=== PATIENT | female | born 1960 | race Caucasian/White ===

== ENCOUNTER → 2016-09-26 | Outpatient (CLI) | payer BC, OTHER ==
[~2016-09-26] MED LIST: AMOX875T PO; ASPI1TAB83 PO; FLNIN NAE; FRCT/ PO; IBUP-1277 PO; METH-446 PO; METO25TA56 PO; NRN300 PO; OMEP40CA PO; PROM25TA16 PO; RIZA10TA19 PO; SUCR1TAB29 PO; ULT50 PO
[2016-10-03 20:34] LABS: V-ZOSTER CULT NOT ISOLATED
== END | disposition home or self-care (01) ==
LOC: C.LABSPEC 13:49
PROVIDERS: ATTEND Dermatology
DX: L30.9 Dermatitis, unspecified (principal)

== ENCOUNTER → 2016-10-16 | Outpatient (CLI) | payer BC | END | disposition home or self-care (01) | LOC: C.PATHSPEC 16:33 | PROVIDERS: ATTEND Dermatology | DX: C44.91 Basal cell carcinoma of skin, unspecified (principal) ==

== ENCOUNTER 2016-10-22 21:34 | Emergency (ER) | payer BC, OTHER ==
[~2016-10-22] VITALS: Ht 158.8 cm; Wt 100.8 kg
[~2016-10-22 21:34] MED LIST changes: -AMOX875T PO
[2016-10-22 21:39] VITALS: TEMP 36.7; Ht 158.8 cm; Wt 100.8 kg
[2016-10-22] MEDS ORDERED: AMOX875T PO (22:14)
[2016-10-22] MEDS ORDERED: AMOXICIL/CLAVU 875MG HOME PACK PO ONE (22:15)
[2016-10-22 22:36] VITALS: BP 153/93; PULSE 90; O2SAT 93
--- NOTE | 2016-10-23 05:10 | EMERGENCY ROOM VISIT NOTE ---
History First contact with patient: 22:02 Chief Complaint: BITE Stated Complaint: INSECT BITE TO RIGHT FOREARM, ROBERT[place], SORE THROAT History of Present Illness The patient is a 56 year old female who presents to the Emergency Room with complaints of pain and swelling to her right forearm worsening over the past one to 2 days. The patient states that she believes that she had an insect bite her in this area, and it has had worsening pain and discomfort. She is also complaining of sinus congestion symptoms for the past 2-3 weeks. The patient has not had fever or chills. No chest pain, chest tightness, or shortness of breath. 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 She rates her discomfort a 6/10 without radiation. Review of Systems More than 10 systems were reviewed and otherwise negative with the exception of history of present illness. Past Medical/Surgical History Medical Problems: (1) Asthma (2) Bronchitis (3) Cholecystectomy (4) Deep venous thrombosis of lower extremity (5) ESOPHAGEAL STRICTURE (6) Gastroesophageal reflux disease (7) Migraine (8) Multiple sclerosis (9) scoliosis Family History No pertinent family history Social History Smoking Status: Never Smoker Alcohol Use: occasionally Marital Status: in relationship Housing Status: lives with significant other Occupation Status: employed Current/Historical Medications Scheduled Amoxicillin & Pot Clavulanate (Augmentin 875-125 mg), 1 TAB PO BID Aspirin (Aspirin), 81 MG PO DAILY Gabapentin (Gabapentin), 300 MG PO TID Metoprolol Tartrate (Lopressor) (Lopressor), 12.5 MG PO HS Omeprazole (Prilosec), 40 MG PO DAILY Sucralfate (Carafate), 1 GM PO TID Scheduled PRN Acetamin/Butalbital/Caffeine (Fioricet), 1 TABLET PO DAILY PRN Fluticasone Propionate (Flonase Nasal [place]), 2 SPRAYS YAJAIRA DAILY PRN Ibuprofen (Advil), 600 MG PO Q8 PRN Methocarbamol (Robaxin), 750 MG PO TID PRN Promethazine HCl (Promethazine HCl), 25 MG PO Q4-6H PRN Rizatriptan Benzoate (Maxalt-Analytical Sciences Director), 10 MG PO UD PRN Tramadol HCl (Tramadol HCl), 50 MG PO DIRECTED PRN for Headache Allergies Coded Allergies: Azithromycin (Verified Allergy, Mild, rash, 10/22/16) Doxycycline (Verified Allergy, Mild, RASH, 10/22/16) Latex1 -Allergic Contact Dermititis (Verified Allergy, Mild, skin irritation, 10/22/16) Sulfamethoxazole w/Trimethoprim (Verified Allergy, Mild, rash, 10/22/16) Glatiramer (Verified Allergy, Unknown, Shortness of breath., 10/22/16) Mannitol (Verified Allergy, Unknown, Shortness of breath., 10/22/16) Physical Exam Vital Signs Date Time Temp Pulse Resp B/P Pulse Ox O2 Delivery O2 Flow Rate FiO2 10/22/16 22:36 90 16 153/93 93 10/22/16 21:39 36.7 95 20 155/94 96 Room Air Pain Rating (0-10): 3.0 Physical Exam VITALS: Vitals are noted on the nurse's note and reviewed by myself. Vital signs stable. GENERAL: Well-developed, well-nourished, white female, who is in no acute distress and resting comfortably. Patient is cooperative with the examination. HEAD: Normocephalic atraumatic. HEART: Regular rate and rhythm without murmurs gallops or rubs. LUNGS: Clear to auscultation bilaterally without wheezes, rales or rhonchi. No retractions or accessory muscle use. SKIN: The skin was with 3 distinct areas along the volar aspect of the right forearm each measuring approximately 1.5 cm in diameter. These do appear consistent with an insect bite or similar finding. There is a surrounding cellulitis measuring an additional 4 to 5 cm around these lesions. This does track proximally, but there is no palpable cord. The patient has full sensation and range of motion of the right upper extremity. Medical Decision & Procedures Medications Administered Medications (Trade) Dose Ordered Sig/Alisha Route Start Time Stop Time Status Last Admin Dose Admin Amoxicillin/ Clavulanate Potassium (Augmentin 875MG Home Pack) 1 homepack UD ONCE PO 10/22/16 22:15 10/22/16 22:16 DC 10/22/16 22:31 1 HOMEPACK ED Course Physical exam and history were performed. Nursing notes and EMR were reviewed. Patient appears to have a cellulitis of her right forearm, likely from insect bites or other similar injury. The patient certainly does not appear septic or with lymphangitis. She has multiple drug allergies, and after discussing options of care with the patient we will try a course of Augmentin. The patient was asked to follow with her primary care physician in the next few days for recheck of her condition. She was otherwise invited back to the ER with any new, worsening, or concerning symptoms. The chart was completed utilizing [employer] Speech Voice Recognition Software. Grammatical errors, random word insertions, pronoun errors, and incomplete sentences are an occasional consequence of this system due to software limitations, ambient noise, and hardware issues. Any formal questions or concerns about the content, text, or information contained within the body of this dictation should be directly addressed to the provider for clarification. . Medical Decision Differential diagnosis: Etiologies such as cellulitis, abscess, MRSA infection, DVT, necrotizing fasciitis, dermatitis, drug eruption, as well as others were entertained.. Impression Primary Impression: Cellulitis Departure Information Dispostion Home / Self-Care Condition GOOD Prescriptions Amoxicillin & Pot Clavulanate (Augmentin 875-125 mg) 1 Tab Tab 1 TAB PO BID for 9 Days, #18 TAB Prov: Pawel Pal PA-C 10/22/16 Forms HOME CARE DOCUMENTATION FORM, IMPORTANT VISIT INFORMATION Patient Instructions My [facility] Additional Instructions You were seen and evaluated today on an emergency basis only. This is not a substitute for, or an effort to provide, complete comprehensive medical care. It is not possible to recognize and treat all injuries or illnesses in a single emergency department visit. For this reason it is recommended that you followup with your primary care physician this week for ongoing care and evaluation. For baseline pain relief you may alternate ibuprofen and acetaminophen every 4 hours for pain control. Take 600 mg ibuprofen (Advil) and then 4 hours later take 1000 mg acetaminophen (Tylenol). Do not take more than 3000 mg acetaminophen in a single day. Amoxicillin Clavulanate (Augmentin) 875mg: Take one pill twice daily for 10 days for your infection. All antibiotics can cause diarrhea. If this occurs and you feel worse or it does not resolve in 1-2 days follow up with your doctor or return to the Emergency Department as this could be signs of serious underlying problems. Any medication can cause an allergic reaction, stop the pills immediately and return to the ER for rash, hives, breathing difficulties, or swelling. You may take 25-50 mg of [id number] Benadryl every 6 hours as needed for itching. You are welcome to return to the emergency department anytime with new, worsening, or concerning symptoms.
== END 2016-10-22 22:30 | disposition home or self-care (01) ==
LOC: C.EDB 21:37 → C.EDC 22:30
DX: L03.90 Cellulitis, unspecified (principal); J45.909 Unspecified asthma, uncomplicated; K21.9 Gastro-esophageal reflux disease without esophagitis; G35 Multiple sclerosis; M41.9 Scoliosis, unspecified; Z79.82 Long term (current) use of aspirin

== ENCOUNTER → 2016-11-22 | Outpatient (CLI) | payer BC | END | disposition home or self-care (01) | LOC: C.PATHSPEC 17:47 | PROVIDERS: ATTEND Plastic Surgery | DX: C44.319 Basal cell carcinoma of skin of other parts of face (principal) ==

== ENCOUNTER → 2016-11-27 | Outpatient (CLI) | payer BC ==
[2016-11-27 12:14] LABS: BASO % 0.5 %; BASO ABS # 0.03 K/uL (0-0.2); COMPLETE YES; EOS % 2.4 %; HEMATOCRIT 38.8 % (37-47); IG% 0.2 %; LYMPH % 21.4 %; LYMPH ABS # 1.18 K/uL (1.2-3.4); MEAN CELL VOLUME 85.1 fL (80-100); MEAN CORPUSCULAR HEMOGLOBIN 28.3 pg (25-34); MEAN CORPUSCULAR HGB CONC 33.2 g/dl (32-36); MEAN PLATELET VOLUME 11.4 fL (7.4-10.4); NEUT % 67.5 %; PLATELET COUNT 219 K/uL (130-400); RED BLOOD COUNT 4.56 M/uL (4.2-5.4); WHITE BLOOD COUNT 5.51 K/uL (4.8-10.8)
[2016-11-27 12:25] LABS: URINE APPEARANCE CLEAR (CLEAR); URINE BILIRUBIN NEG (NEG); URINE COLOR YELLOW; URINE EPITHELIAL CELL AUTO 20-30 /lpf (0-5); URINE NITRITE NEG (NEG); URINE SPECIFIC GRAVITY 1.006 (1.000-1.030); UROBILINOGEN NEG (NEG); ZZUR CULT IF INDIC CLEAN CATCH NO
[2016-11-27 12:39] LABS: MANUAL MICROSCOPIC REQUIRED? NO; REVIEW REQ? NO
[2016-11-27 13:55] LABS: LYME DISEASE AB IGG NEG (NEG)
[2016-11-27 13:58] LABS: LYME DISEASE AB IGM NEG (NEG)
[2016-11-27 15:21] LABS: CALCIUM 9.9 mg/dl (8.5-10.1)
[2016-11-27 15:22] LABS: ALT/SGPT 28 U/L (12-78); AST/SGOT 16 U/L (15-37); BLOOD UREA NITROGEN 12 mg/dl (7-18); BUN/CREATININE RATIO 16.4 (10-20); CARBON DIOXIDE 30 mmol/L (21-32); CHLORIDE 105 mmol/L (98-107); CREATININE 0.73 mg/dl (0.60-1.20); GLUCOSE 94 mg/dl (70-99); POTASSIUM 4.1 mmol/L (3.5-5.1); SODIUM 141 mmol/L (136-145)
[2016-11-27 15:24] LABS: ALKALINE PHOSPHATASE 91 U/L (45-117)
== END | disposition home or self-care (01) ==
LOC: C.LAB1850 10:03
PROVIDERS: ATTEND Physician Assistant
DX: T14.8 Other injury of unspecified body region (principal); W57.XXXA Bitten or stung by nonvenomous insect and other nonvenomous arthropods, initial encounter; J01.90 Acute sinusitis, unspecified; R39.9 Unspecified symptoms and signs involving the genitourinary system

== ENCOUNTER 2017-10-20 22:49 | Emergency (ER) | payer BC, OTHER ==
[~2017-10-20] VITALS: Ht 157.5 cm; Wt 94.9 kg
[2017-10-20 22:57] VITALS: TEMP 36.7; Ht 157.5 cm; Wt 94.9 kg
[2017-10-20] MEDS ORDERED: DiphenhydrAMINE HCL 50 MG/ML VIAL IV STA (23:19)
[2017-10-20] MEDS ORDERED: PROCHLORPERAZINE 5 MG/ML 2 ML VIAL IV STA (23:19)
[2017-10-20] MEDS ORDERED: SODIUM CHLORIDE 0.9% 1000ML 1,000 ML IV STA (23:19)
[2017-10-20] MEDS ORDERED: KETOROLAC TROMETHAMINE 30 MG/ML VIAL IV STA (23:19)
[2017-10-20] MEDS ORDERED: MAGNESIUM SULFATE 1GM / D5W 1 GM BAG IV STA (23:19)
--- NOTE | 2017-10-20 23:21 | EMERGENCY ROOM VISIT NOTE ---
History Report prepared by Joselin: Neisha Iyer Under the Supervision of: Dr. Eduardo Conde M.D. First contact with patient: 23:07 Chief Complaint: STROKE SYMPTOMS Stated Complaint: FACE NUMBNESS,ARM AND LEG NUMB L SIDE History of Present Illness The patient is a 57 year old female who presents to the Emergency Room with complaints of persistent left sided face, arm, and leg numbness that started 1 hour ago. The patient rates her discomfort a 4/10 in severity. The patient reports she went to get a case of water and noticed the left side of her face started to feel numb and slowly radiated to her left arm and left leg. She states her chest felt tight. The patient reports she had a similar episode 2 weeks ago. She states she took 3 baby aspirin and her symptoms subsided. The patient has a history of MS. She notes she normally gets a bad headache during her flare ups. Her last flare up was "a while ago". She last saw Dr. Suarez for her MS in August. The patient denies a headache today but notes she has had a bad headache for the past 2 weeks. She states she takes blood pressure medication. She reports she had a heart catheterization in 2014 but did not have any stents put in. Source of History: patient Onset: 1 hour ago Position: head (left side of face), arm (left), leg (left) Symptom Intensity: 4/10 Timing: other (persistent) Associated Symptoms: + chest pain, No headache Review of Systems See HPI for pertinent positives & negatives. A total of 10 systems reviewed and were otherwise negative. Past Medical & Surgical Medical Problems: (1) Asthma (2) Bronchitis (3) Cholecystectomy (4) Deep venous thrombosis of lower extremity (5) ESOPHAGEAL STRICTURE (6) Gastroesophageal reflux disease (7) Migraine (8) Multiple sclerosis (9) scoliosis Family History No pertinent family history Social History Smoking Status: Never Smoker Alcohol Use: occasionally Marital Status: in relationship Housing Status: lives with significant other Occupation Status: employed Current/Historical Medications Scheduled Aspirin (Aspirin), 81 MG PO DAILY Gabapentin (Gabapentin), 300 MG PO TID Levothyroxine Sodium (Levothyroxine Sodium), 50 MCG PO DAILY Methocarbamol (Robaxin), 750 MG PO DAILY Metoprolol Tartrate (Lopressor) (Lopressor), 12.5 MG PO HS Omeprazole (Prilosec), 40 MG PO DAILY Sucralfate (Carafate), 1 GM PO TID Scheduled PRN Acetamin/Butalbital/Caffeine (Fioricet), 1 TABLET PO DAILY PRN for Migraine Fluticasone Propionate (Nasal) (Flonase Allergy Relief), 2 SPRAYS YAJAIRA DAILY PRN for Allergic Reaction Ibuprofen (Advil), 600 MG PO Q8 PRN for Pain or Fever Rizatriptan Benzoate (Maxalt-Application Trainer), 10 MG PO UD PRN for Migraine Tramadol HCl (Tramadol HCl), 50 MG PO DIRECTED PRN for Headache Allergies Coded Allergies: Azithromycin (Verified Allergy, Mild, rash, 10/21/17) Doxycycline (Verified Allergy, Mild, RASH, 10/21/17) Latex1 -Allergic Contact Dermititis (Verified Allergy, Mild, skin irritation, 10/21/17) Sulfamethoxazole w/Trimethoprim (Verified Allergy, Mild, rash, 10/21/17) Glatiramer (Verified Allergy, Unknown, Shortness of breath., 10/21/17) Mannitol (Verified Allergy, Unknown, Shortness of breath., 10/21/17) Physical Exam Vital Signs Date Time Temp Pulse Resp B/P (MAP) Pulse Ox O2 Delivery O2 Flow Rate FiO2 10/21/17 01:15 83 17 139/81 95 10/21/17 00:36 89 19 95 Room Air 10/21/17 00:34 169/90 10/21/17 00:06 88 16 95 Room Air 10/21/17 00:01 114/81 10/20/17 23:50 90 10/20/17 23:49 89 17 93 10/20/17 23:43 95 Room Air 10/20/17 23:33 135/99 Room Air 10/20/17 22:57 36.7 99 16 159/99 96 Room Air Physical Exam GENERAL: Awake, alert, well-appearing, in no acute distress HENT: Normocephalic, atraumatic. Oropharynx unremarkable. EYES: Normal conjunctiva. Sclera non-icteric. NECK: Supple. No nuchal rigidity. FROM. No JVD. RESPIRATORY: Clear to auscultation. CARDIAC: Regular rate, normal rhythm. Extremities warm and well perfused. Pulses equal. ABDOMEN: Soft, non-distended. No tenderness to palpation. No rebound or guarding. No masses. RECTAL: Deferred. MUSCULOSKELETAL: Chest examination reveals no tenderness. The back is symmetrical on inspection without obvious abnormality. There is no CVA tenderness to palpation. No joint edema. LOWER EXTREMITIES: Calves are equal size bilaterally and non-tender. No edema. No discoloration. NEURO: Normal sensorium. No sensory or motor deficits noted. SKIN: No rash or jaundice noted. Medical Decision & Procedures ER Provider Diagnostic Interpretation: 1 VIEW CHEST X-RAY interpreted by me: Chronic changes. NO evidence of pneumonia, pneumothorax, or congestion. CT HEAD: There is a prior CT from May 2011. There is also an MRI from February 2016. Only some images from the prior MRI available and no prior report is available. White matter changes. These appear more prominent than previous CT. Nonspecific. May represent chronic ischemic changes and/or areas of demyelination. Is there history of MS? No ICH, mass effect, evidence of acute large vessel infarct r other acute intracranial finding. Laboratory Results 10/20/17 23:20 Red Blood Count 4.61, Mean Corpuscular Volume 84.8, Mean Corpuscular Hemoglobin 28.9, Mean Corpuscular Hemoglobin Concent 34.0, Mean Platelet Volume 11.0, Neutrophils (%) (Auto) 62.0, Lymphocytes (%) (Auto) 30.0, Monocytes (%) (Auto) 5.5, Eosinophils (%) (Auto) 1.8, Basophils (%) (Auto) 0.5, Neutrophils # (Auto) 5.36, Lymphocytes # (Auto) 2.60, Monocytes # (Auto) 0.48, Eosinophils # (Auto) 0.16, Basophils # (Auto) 0.04 10/20/17 23:20 Test 10/20/17 23:09 10/20/17 23:20 10/20/17 23:40 Bedside Glucose 103 mg/dl (70-90) White Blood Count 8.66 K/uL (4.8-10.8) Red Blood Count 4.61 M/uL (4.2-5.4) Hemoglobin 13.3 g/dL (12.0-16.0) Hematocrit 39.1 % (37-47) Mean Corpuscular Volume 84.8 fL (80-100) Mean Corpuscular Hemoglobin 28.9 pg (25-34) Mean Corpuscular Hemoglobin Concent 34.0 g/dl (32-36) Platelet Count 202 K/uL (130-400) Mean Platelet Volume 11.0 fL (7.4-10.4) Neutrophils (%) (Auto) 62.0 % Lymphocytes (%) (Auto) 30.0 % Monocytes (%) (Auto) 5.5 % Eosinophils (%) (Auto) 1.8 % Basophils (%) (Auto) 0.5 % Neutrophils # (Auto) 5.36 K/uL (1.4-6.5) Lymphocytes # (Auto) 2.60 K/uL (1.2-3.4) Monocytes # (Auto) 0.48 K/uL (0.11-0.59) Eosinophils # (Auto) 0.16 K/uL (0-0.5) Basophils # (Auto) 0.04 K/uL (0-0.2) RDW Standard Deviation 46.2 fL (36.4-46.3) RDW Coefficient of Variation 15.0 % (11.5-14.5) Immature Granulocyte % (Auto) 0.2 % Immature Granulocyte # (Auto) 0.02 K/uL (0.00-0.02) Prothrombin Time 9.6 SECONDS (9.0-12.0) Prothromb Time International Ratio 0.9 (0.9-1.1) Activated Partial Thromboplast Time 26.4 SECONDS (21.0-31.0) Partial Thromboplastin Ratio 1.0 Anion Gap 6.0 mmol/L (3-11) Est Creatinine Clear Calc Drug Dose 68.5 ml/min Estimated GFR () 76.0 Estimated GFR (Non- 65.6 BUN/Creatinine Ratio 15.7 (10-20) Calcium Level 9.4 mg/dl (8.5-10.1) Magnesium Level 2.5 mg/dl (1.8-2.4) Total Creatine Kinase 58 U/L (26-192) Creatine Kinase MB 1.3 ng/ml (0.5-3.6) Creatine Kinase MB Ratio 2.2 (0-3.0) Troponin I < 0.015 ng/ml (0-0.045) Chemistry Specimen Hemolysis Urine Color YELLOW Urine Appearance CLEAR (CLEAR) Urine pH 7.5 (4.5-7.5) Urine Specific [place] 1.008 (1.000-1.030) Urine Protein NEG (NEG) Urine Glucose (UA) NEG (NEG) Urine Ketones NEG (NEG) Urine Occult Blood NEG (NEG) Urine Nitrite NEG (NEG) Urine Bilirubin NEG (NEG) Urine Urobilinogen NEG (NEG) Urine Leukocyte Esterase TRACE (NEG) Urine WBC (Auto) 0 /hpf (0-5) Urine RBC (Auto) 0-4 /hpf (0-4) Urine Hyaline Casts (Auto) 0 /lpf (0-5) Urine Epithelial Cells (Auto) 0-5 /lpf (0-5) Urine Bacteria (Auto) NEG (NEG) Labs reviewed by ED physician. Medications Administered Medications (Trade) Dose Ordered Sig/Alisha Route Start Time Stop Time Status Last Admin Dose Admin Ketorolac Tromethamine (Toradol Inj) 30 mg NOW STAT IV 10/20/17 23:19 10/20/17 23:23 DC 10/20/17 23:40 30 MG Prochlorperazine Edisylate (Compazine Inj) 5 mg NOW STAT IV 10/20/17 23:19 10/20/17 23:23 DC 10/20/17 23:39 5 MG Magnesium Sulfate (Magnesium Sulfate 1gm / D5W) 1 gm NOW STAT IV 10/20/17 23:19 10/20/17 23:23 DC 10/20/17 23:39 1 GM Sodium Chloride 1,000 ml @ 999 mls/hr Q1H1M STAT IV 10/20/17 23:19 10/21/17 00:19 DC 10/20/17 23:39 999 MLS/HR ECG Per My Interpretation Indication: chest pain Rate (beats per minute): 98 Rhythm: normal sinus Findings: other (no ST elevation or depression, normal EKG) ED Course 2307: Past medical records reviewed. The patient was evaluated in room B8. A complete history and physical examination was performed. 2319: Sodium Chloride 1000 ml @ 999 mls/hr IV, Magnesium Sulfate 1 gm IV, Benadryl Inj 50 mg IV, Compazine Inj 5 mg IV, Toradol Inj 30 mg IV. 0007: Valproate Sodium 500 mg/Dextrose 55 ml @ 55 mls/hr IV, Dexamethasone Sodium Phosphate 10 mg/Syringe 2.5 ml @ 1 mls/min IV, Benadryl Inj 50 mg IV. 0024: Dexamethasone Sodium Phosphate 10 mg .ROUTE. 0106: Dr. Chamberlain, Radiology called to verify if the patient has a history of MS. 0110: Upon reexamination the patient is feeling better. I discussed results and treatment plan with the patient. She verbalizes agreement and understanding. The patient is ready for discharge. Medical Decision Differential diagnosis: Etiologies such as migraine headache, meningitis, sinusitis, CO exposure, ICH, SAH, infection, tumor, headache, sinus thrombosis, arterial dissection, as well as others were entertained. This is a 57-year-old female who presents emergency department complaining of left sided face arm and leg numbness. The patient has no weakness on physical examination. Patient reports she had a similar episode approximately 2 weeks ago that was accompanied with a headache after the numbness resolved. Based on this finding I feel that the patient is most likely suffering from an atypical migraine. I expressed this to the patient however noted we will get her checked out. For this reason she was sent for CAT scan of the head. She has a normal CBC normal renal profile normal liver profile. She also has a normal EKG. The patient was given Toradol magnesium Compazine in the emergency department repeat examination revealed improvement in the patient's symptoms. Based on this I feel that the patient is most likely suffering from a migraine however I stressed the need for follow-up with the patient's neurologist. I also recommended Decadron however the patient at this point is refusing it. Medication Reconcilliation Current Medication List: was personally reviewed by me Impression Primary Impression: Left sided numbness Scribe Attestation The scribe's documentation has been prepared under my direction and personally reviewed by me in its entirety. I confirm that the note above accurately reflects all work, treatment, procedures, and medical decision making performed by me. Departure Information Dispostion Home / Self-Care Referrals RV. Santana MD (PCP) Patient Instructions My [facility] Additional Instructions Follow up with Dr Suarez's office this week You have been examined and treated today on an emergency basis only. This is not a substitute for, or an effort to provide, complete comprehensive medical care. It is impossible to recognize and treat all injuries or illnesses in a single emergency department visit. It is therefore important that you follow up closely with Dr Adam. Call as soon as possible for an appointment. Thank you for your time and consideration. I look forward to speaking with you again soon. Please don't hesitate to call us if you have any questions.
[2017-10-20 23:43] VITALS: O2SAT 95
[2017-10-20 23:46] LABS: BASO % 0.5 %; BASO ABS # 0.04 K/uL (0-0.2); EOS % 1.8 %; EOS ABS # 0.16 K/uL (0-0.5); HEMATOCRIT 39.1 % (37-47); HEMOGLOBIN 13.3 g/dL (12.0-16.0); IG# 0.02 K/uL (0.00-0.02); MEAN CELL VOLUME 84.8 fL (80-100); MEAN CORPUSCULAR HEMOGLOBIN 28.9 pg (25-34); MONO % 5.5 %; MONO ABS # 0.48 K/uL (0.11-0.59); NEUT ABS # 5.36 K/uL (1.4-6.5); PLATELET COUNT 202 K/uL (130-400); RED CELL DISTRIBUTION WIDTH SD 46.2 fL (36.4-46.3); WHITE BLOOD COUNT 8.66 K/uL (4.8-10.8)
[2017-10-20 23:47] LABS: INR 0.9 (0.9-1.1); PTT PATIENT 26.4 SECONDS (21.0-31.0)
[2017-10-20 23:57] LABS: BLOOD UREA NITROGEN 15 mg/dl (7-18); CALCIUM 9.4 mg/dl (8.5-10.1); CARBON DIOXIDE 28 mmol/L (21-32); CREATININE 0.95 mg/dl (0.60-1.20); GLUCOSE 90 mg/dl (70-99); POTASSIUM 4.1 mmol/L (3.5-5.1); SODIUM 140 mmol/L (136-145)
[2017-10-21 00:01] LABS: CKMB 1.3 ng/ml (0.5-3.6)
[2017-10-21] MEDS ORDERED: DEXAMETHASONE INJ 10 MG in SYRINGE 0 ML IV STA (00:07)
[2017-10-21] MEDS ORDERED: VALPROATE SOD IV 500 MG in DEXTROSE 5% 50ML 50 ML IV STA (00:07)
[2017-10-21] MEDS ORDERED: DiphenhydrAMINE HCL 50 MG/ML VIAL IV STA (00:07)
[2017-10-21] MEDS ORDERED: OMEP20CA9 PO (00:08)
[2017-10-21] MEDS ORDERED: LEVO50TA6 PO (00:08)
[2017-10-21] MEDS ORDERED: FLUT0.15 NAE (00:08)
[2017-10-21] MEDS ORDERED: DEXAMETHASONE **PF** INJ 10 MG/ML VIAL ONE (00:24)
[2017-10-21 01:15] VITALS: BP 139/81; PULSE 83; O2SAT 95
--- NOTE | 2017-10-21 07:07 | DIAGNOSTIC IMAGING REPORT ---
HEAD CT NONCONTRAST CT DOSE: 614.27 mGy.cm HISTORY: Left-sided facial, arm, and leg numbness. Stroke TECHNIQUE: Multiaxial CT images of the head were performed without the use of intravenous contrast. Automated exposure control was utilized for this study. A dose lowering technique was utilized adhering to the principles of ALARA. Comparison: None. Findings: The paranasal sinuses and mastoid air cells are clear. The calvarium and skull base are intact. The ventricles and sulci are within normal limits. There is no mass, hematoma, midline shift, or acute infarct. Periventricular white matter hypodensity has progressed. Impression: Progressive periventricular white matter hypodensity. This corresponds to the patient's history of progressive multiple sclerosis. No acute infarct identified. Electronically signed by: Colby Darby M.D. 10/21/2017 7:06 AM Dictated Date/Time: 10/21/2017 7:03 AM
--- NOTE | 2017-10-21 08:50 | DIAGNOSTIC IMAGING REPORT ---
CHEST ONE VIEW PORTABLE CLINICAL HISTORY: 57 years-old Female presenting with Stroke. TECHNIQUE: Portable upright AP view of the chest was obtained. COMPARISON: 06/11/2015. FINDINGS: Atherosclerosis of aortic arch. Tortuosity of the aorta secondary to severe scoliosis. Cardiac silhouette enlarged. Minimal basilar opacities. No pleural effusion or pneumothorax. Significant scoliosis of the thoracic spine with dextrocurvature of the midthoracic spine and compensatory levocurvature of the lumbar spine. Upper abdomen normal. IMPRESSION: 1. Minimal basilar opacities likely atelectasis or scarring. No convincing evidence of acute cardiopulmonary disease. Electronically signed by: Maxwell Montejo M.D. 10/21/2017 8:48 AM Dictated Date/Time: 10/21/2017 7:46 AM
== END 2017-10-21 01:15 | disposition home or self-care (01) ==
LOC: C.EDB 22:51
DX: R20.0 Anesthesia of skin (principal); R07.9 Chest pain, unspecified; G35 Multiple sclerosis; J45.909 Unspecified asthma, uncomplicated; Z79.82 Long term (current) use of aspirin; Z79.899 Other long term (current) drug therapy; Z88.8 Allergy status to other drugs, medicaments and biological substances; Z91.040 Latex allergy status